=== PATIENT | female | born 1955 | race Caucasian/White ===

== ENCOUNTER 2021-12-23 13:18 | Emergency (ER) | payer BC, MEDICARE ==
[2021-12-23 13:24] VITALS: RESP 18; TEMP 98.2
[2021-12-23] MEDS ORDERED: DIPH,PERTUS(ACELL)TETVAC-LF 0.5 ML VIAL IM ONE (13:56)
--- NOTE | 2021-12-23 13:58 | ED ---
General Adult HPI - General Chief complaint: Extremity Injury, Upper Stated complaint: Object in hand Time Seen by Provider: 12/23/21 13:35 Source: patient, RN notes reviewed, old records reviewed Mode of arrival: ambulatory Limitations: no limitations - History of Present Illness Initial comments: 66-year-old female with foreign body to the right hand. Patient was cleaning a wooden panel, splinter entered the finger, dorsal surface. Patient has had pain was unable to visualize the piece of wood. - Related Data Home Medications Medication Instructions Recorded Confirmed Cholecalciferol [Vitamin D3] 1,000 unit PO DAILY 12/11/13 12/19/13 Citalopram Hydrobromide [CeleXA] 10 mg PO DAILY 12/11/13 12/19/13 Cyanocobalamin [Vitamin B-12] 500 mcg PO DAILY@1200 12/11/13 12/19/13 Levothyroxine Sodium [Synthroid] 112 mcg PO DAILY 12/11/13 12/19/13 Previous Rx's Medication Instructions Recorded Cephalexin [Keflex] 500 mg PO QID 7 Days #28 cap 12/23/21 Allergies Allergy/AdvReac Type Severity Reaction Status Date / Time No Known Allergies Allergy Verified 12/23/21 13:24 Review of Systems ROS Statement: Those systems with pertinent positive or pertinent negative responses have been documented in the HPI. ROS Other: All systems not noted in ROS Statement are negative. Past Medical History Additional Past Medical History / Comment(s): FELL IN AUGUST DUE TO DIZZINESS. STATES DIZZINESS "FOR A WHILE". History of Any Multi-Drug Resistant Organisms: None Reported Additional Past Surgical History / Comment(s): lymph node bx- benign, cyst removal, 1 D&C, rt hand surgery x2. 12/19/13 LUMBAR PUNCTURE TO R/O MULTIPLE SCLEROSIS. Past Psychological History: Anxiety Smoking Status: Current every day smoker Past Alcohol Use History: None Reported Past Drug Use History: None Reported General Exam Limitations: no limitations General appearance: alert, in no apparent distress Head exam: Present: atraumatic, normocephalic Eye exam: Present: normal appearance, PERRL ENT exam: Present: normal exam Neck exam: Present: normal inspection. Absent: tenderness, meningismus Respiratory exam: Present: normal lung sounds bilaterally. Absent: respiratory distress, wheezes Cardiovascular Exam: Present: regular rate, normal rhythm GI/Abdominal exam: Present: soft. Absent: distended, tenderness Extremities exam: Present: other (Pain and swelling over the dorsal surface of the fourth digit right hand at the proximal interphalangeal joint, with small site of entry on the radial side.) Neurological exam: Present: alert, oriented X3, CN II-XII intact. Absent: motor sensory deficit Skin exam: Present: warm, dry Course Vital Signs 12/23/21 13:20 Temperature 98.2 F Pulse Rate 107 H Respiratory 18 Rate Blood Pressure 139/82 O2 Sat by Pulse 96 Oximetry Procedures - Forgein Body Removal Soft Tissue Consent Obtained: verbal consent Site: hand Anesthetic Used: lidocaine 1% Amount (mLs): 4 Foreign Body Suspected: Wood Foreign Body Removed: yes Foreign Body Removal Technique: Instrumentation Patient Tolerated Procedure: well - Nerve Block Consent Obtained: verbal consent Local Anesthetic Used: Lidocaine 1% Amount of anesthesia used: 4 Side: right Nerve Blocks: digital Complications: none Patient Tolerated Procedure: well Medical Decision Making - Medical Decision Making 66-year-old with what foreign-body. I was able to remove the foreign body in the emergency department and did have a trajectory that I believe it went into the joint space of the proximal interphalangeal joint fourth digit right hand. X-ray did not show foreign body. I will start the patient on antibiotics or tetanus is updated. She should follow-up with hand surgery and monitor very closely for infection. Disposition Clinical Impression: Foreign body hand Disposition: HOME SELF-CARE Condition: Good Instructions (If sedation given, give patient instructions): Puncture Wound (ED), Soft Tissue Foreign Body (ED) Prescriptions: Cephalexin [Keflex] 500 mg PO QID 7 Days #28 cap Is patient prescribed a controlled substance at d/c from ED?: No Referrals: Alex Okeefe MD [Primary Care Provider] - 1-2 days Morgan Bazzi DO [Doctor of Osteopathic Medicine] - 1-2 days
--- NOTE | 2021-12-23 14:20 | XR ---
Right hand HISTORY: Foreign body, pain fourth digit 2 views of the right hand Arthropathy changes are present. Bone mineralization and alignment are maintained. Old ulnar styloid fracture is present. There is likely scaphoid waist fracture which is chronic, secondary osteoarthrit ic changes are present. No radiopaque foreign body is evident. Lucencies present within the soft tiss ues at the level of the distal fourth digit medially at the metacarpophalangeal joint IMPRESSION: Correlate for remote trauma to the right wrist. No radiopaque foreign body evident at the fourth digit, correlate for cellulitis.
[2021-12-23 14:45] VITALS: BP 132/74; PULSE 75
== END 2021-12-23 14:45 | disposition home or self-care (01) ==
LOC: EC 13:18
DX: S60.551A Superficial foreign body of right hand, initial encounter (principal); F17.200 Nicotine dependence, unspecified, uncomplicated; Z23 Encounter for immunization; W45.8XXA Other foreign body or object entering through skin, initial encounter
CPT/HCPCS: 90715

== ENCOUNTER 2022-01-20 13:38 | Emergency (ER) | payer BC, MEDICARE ==
[2022-01-20 14:02] VITALS: RESP 18
[2022-01-20] MEDS ORDERED: KETOROLAC 15 MG/ML 1 ML VIAL IVP STA (14:04)
[2022-01-20] MEDS ORDERED: diazePAM 5 MG TAB PO STA (14:04)
[2022-01-20] MEDS ORDERED: ACET/COD 300 MG/30 MG STARTER PACK 6 TAB BTL PO STA (15:12)
--- NOTE | 2022-01-20 15:12 | ED ---
General Adult HPI - General Chief complaint: Extremity Injury, Lower Stated complaint: Hip injury Time Seen by Provider: 01/20/22 13:40 Source: patient, EMS, RN notes reviewed, old records reviewed Mode of arrival: EMS Limitations: no limitations - History of Present Illness Initial comments: This is a 66-year-old female who presents to the emergency department complaining that she slipped on some oral the floor and almost splits and now she has some pain in her left buttock region which radiates down the leg a little. Patient denies any back pain. Patient denies hitting her head or neck. Patient states the pain is all at the top of the hamstring area. Patient denies any other injury at this time. - Related Data Home Medications Medication Instructions Recorded Confirmed Cholecalciferol [Vitamin D3] 1,000 unit PO DAILY 12/11/13 12/19/13 Citalopram Hydrobromide [CeleXA] 10 mg PO DAILY 12/11/13 12/19/13 Cyanocobalamin [Vitamin B-12] 500 mcg PO DAILY@1200 12/11/13 12/19/13 Levothyroxine Sodium [Synthroid] 112 mcg PO DAILY 12/11/13 12/19/13 Previous Rx's Medication Instructions Recorded Cephalexin [Keflex] 500 mg PO QID 7 Days #28 cap 12/23/21 Ketorolac [Toradol] 10 mg PO Q6HR #15 tab 01/20/22 Allergies Allergy/AdvReac Type Severity Reaction Status Date / Time No Known Allergies Allergy Verified 12/23/21 13:24 Review of Systems ROS Statement: Those systems with pertinent positive or pertinent negative responses have been documented in the HPI. ROS Other: All systems not noted in ROS Statement are negative. Past Medical History Additional Past Medical History / Comment(s): FELL IN AUGUST DUE TO DIZZINESS. STATES DIZZINESS "FOR A WHILE". History of Any Multi-Drug Resistant Organisms: None Reported Additional Past Surgical History / Comment(s): lymph node bx- benign, cyst removal, 1 D&C, rt hand surgery x2. 12/19/13 LUMBAR PUNCTURE TO R/O MULTIPLE SCLEROSIS. Past Psychological History: Anxiety Smoking Status: Current every day smoker Past Alcohol Use History: None Reported Past Drug Use History: None Reported General Exam - General Exam Comments Initial Comments: GENERAL Patient is well-developed and well-nourished. Patient is in mild distress. EYES Patient's pupils are equal and round. Extraocular motion is intact SKIN Unremarkable NEURO The patient is alert and oriented 3 PYSCH Patient has normal interpersonal interactions. MUSCULOSKELETAL patient has pain in the posterior aspect of her leg at the upper insertion of the hamstring. Patient has full range of motion of the hip. Patient has full range motion of the knee. Limitations: no limitations Course Vital Signs 01/20/22 13:42 Temperature 99.1 F Pulse Rate 100 Respiratory 18 Rate Blood Pressure 130/84 O2 Sat by Pulse 97 Oximetry Disposition Clinical Impression: Hamstring muscle strain Disposition: HOME SELF-CARE Condition: Good Instructions (If sedation given, give patient instructions): Hamstring Injury (ED) Prescriptions: Ketorolac [Toradol] 10 mg PO Q6HR #15 tab Is patient prescribed a controlled substance at d/c from ED?: No Referrals: Alex Okeefe MD [Primary Care Provider] - 1-2 days Time of Disposition: 15:12
[2022-01-20 15:52] VITALS: BP 116/81; PULSE 94; TEMP 98.8
--- NOTE | 2022-01-20 15:53 | XR ---
EXAMINATION TYPE: XR Hip LT and AP Pelvis DATE OF EXAM: 01/20/2022 COMPARISON: NONE HISTORY: Trauma, pain TECHNIQUE: A single AP view of the pelvis is obtained. Two views of the left hip are obtained. FINDINGS: There is no acute fracture/dislocation evident in the pelvis. The hip and sacroiliac join ts appear symmetric and some mild concentric narrowing present in the left hip with some mild spurrin g consistent with osteoarthritic change. The overlying soft tissue appears unremarkable. Two views of left hip show no acute fracture or dislocation. No focal lytic or sclerotic lesion seen in the proximal left femur. The overlying soft tissue is unremarkable. Punctate metallic densities are likely due to bowel content within the pelvis. Generative disc changes are present of the lower lumbar spine, there is spina bifida occulta at S1. IMPRESSION: There is no acute fracture or dislocation in the pelvis or left hip.
== END 2022-01-20 16:05 | disposition home or self-care (01) ==
LOC: EC 13:38
DX: S76.312A Strain of muscle, fascia and tendon of the posterior muscle group at thigh level, left thigh, initial encounter (principal); F41.9 Anxiety disorder, unspecified; F17.200 Nicotine dependence, unspecified, uncomplicated; W01.0XXA Fall on same level from slipping, tripping and stumbling without subsequent striking against object, initial encounter
CPT/HCPCS: 73502; 99284; 96374; J1885

== ENCOUNTER 2022-10-17 15:52 | Emergency (ER) | payer BC, MEDICARE ==
--- NOTE | 2022-10-17 16:18 | ED ---
Chest Pain HPI - General Stated Complaint: Chest Pain Time Seen by Provider: 10/17/22 16:14 Source: RN notes reviewed, old records reviewed - History of Present Illness Initial Comments: This is a 67-year-old female DF for evaluation of chest pain today. Patient was driving from taking her dog for evaluation after that and begin any chest pain no driving home patient did make the drive home, states she was low but clammy on arrival little anxious. Patient presents to the ER with chest pain and anxiety. Patient is no shortness of breath. Patient has had this pain in the past but no significant other symptoms symptoms again no shortness of breath or sweating. Patient is no history of high blood pressure cholesterol diabetes nonsmoker with no significant history of heart disease. MD Complaint: chest pain -: hour(s) Onset: during rest, during exertion Pain Location: substernal Pain Radiation: none Severity: mild Severity scale (1-10): 3 Quality: tightness, aching Consistency: intermittent, now resolved Anginal Symptoms: sense of impending doom Treatments Prior to Arrival: none - Related Data Home Medications Medication Instructions Recorded Confirmed Levothyroxine Sodium [Synthroid] 112 mcg PO DAILY 12/11/13 10/17/22 Cholecalciferol [Vitamin D3 (25 25 mcg PO DAILY 10/17/22 10/17/22 Mcg = 1000 Iu)] Citalopram Hydrobromide [CeleXA] 20 mg PO DAILY 10/17/22 10/17/22 Fluticasone/Umeclidin/Vilanter 1 puff INHALATION RT-DAILY 10/17/22 10/17/22 [Trelekalpana Ellipta 100-62.5-25] Allergies Allergy/AdvReac Type Severity Reaction Status Date / Time No Known Allergies Allergy Verified 10/17/22 17:05 Review of Systems ROS Statement: Those systems with pertinent positive or pertinent negative responses have been documented in the HPI. ROS Other: All systems not noted in ROS Statement are negative. EKG Findings - EKG Comments: EKG Findings:: EKG shows sinus 74 TX 162 QRS 14 QTC 400 Past Medical History Additional Past Medical History / Comment(s): FELL IN AUGUST DUE TO DIZZINESS. STATES DIZZINESS "FOR A WHILE". History of Any Multi-Drug Resistant Organisms: None Reported Additional Past Surgical History / Comment(s): lymph node bx- benign, cyst removal, 1 D&C, rt hand surgery x2. 12/19/13 LUMBAR PUNCTURE TO R/O MULTIPLE SCLEROSIS. Past Psychological History: Anxiety Smoking Status: Current every day smoker Past Alcohol Use History: None Reported Past Drug Use History: None Reported General Exam General appearance: alert, in no apparent distress Head exam: Present: atraumatic, normocephalic, normal inspection Eye exam: Present: normal appearance, PERRL, EOMI. Absent: scleral icterus, conjunctival injection, periorbital swelling ENT exam: Present: normal exam, mucous membranes moist Neck exam: Present: normal inspection. Absent: tenderness, meningismus, lymphadenopathy Respiratory exam: Present: normal lung sounds bilaterally. Absent: respiratory distress, wheezes, rales, rhonchi, stridor Cardiovascular Exam: Present: regular rate, normal rhythm, normal heart sounds. Absent: systolic murmur, diastolic murmur, rubs, gallop, clicks GI/Abdominal exam: Present: soft, normal bowel sounds. Absent: distended, tenderness, guarding, rebound, rigid Extremities exam: Present: normal inspection, full ROM, normal capillary refill. Absent: tenderness, pedal edema, joint swelling, calf tenderness Back exam: Present: normal inspection Neurological exam: Present: alert, oriented X3, CN II-XII intact Psychiatric exam: Present: normal affect, normal mood Skin exam: Present: warm, dry, intact, normal color. Absent: rash Course Vital Signs 10/17/22 10/17/22 10/17/22 16:15 16:32 16:52 Temperature Pulse Rate 92 90 Respiratory 16 16 Rate Blood Pressure 151/99 125/84 O2 Sat by Pulse 97 97 Oximetry 10/17/22 18:42 Temperature 97.8 F Pulse Rate 98 Respiratory 18 Rate Blood Pressure 108/78 O2 Sat by Pulse 97 Oximetry - Reevaluation(s) Reevaluation #1: 10/17/22 22:07 Medical record is reviewed Reevaluation #2: 10/17/22 22:07 Chest pain is intermittent and improving Reevaluation #3: 10/17/22 22:07 Patient informed results and questions answered Reevaluation #4: 10/17/22 Was pt. sent in by a medical professional or institution? @ -no Did you speak to anyone other than the patient for history? @ -no Did you review nursing and triage notes? @ -agree Were old charts reviewed? @ -yes Differential Diagnosis? @ -no EKG interpreted by me (3pts min.)? @ -no X-rays interpreted by me (1pt min.)? @ -no CT interpreted by me (1pt min.)? @ -no U/S interpreted by me (1pt. min.)? @ -no What testing was considered but not performed? (CT, X-rays, U/S, labs)? Why? @ -no What meds were considered but not given? Why? @ -no Did you discuss the management of the patient with other professionals? @ -no Did you reconcile home meds? @ -no Was smoking cessation discussed for >3mins.? @ -no Was critical care preformed (if so, how long)? @ -no Were there social determinants of health that impacted care today? How? (Homelessness, low income, unemployed, alcoholism, drug addiction, transportation, low edu. Level, literacy, decrease access to med. care, nursing home, rehab)? @ -no Was there de-escalation of care discussed even if they declined? (Discuss DNR or withdrawal of care, Hospice)? @ -no What co-morbidities impacted this encounter? (DM, HTN, Smoking, COPD, CAD, Cancer, CVA, Hep., AIDS, mental health diagnosis, sleep apnea, morbid obesity)? @ -no Was patient admitted / discharged? @ -dc Undiagnosed new problem with uncertain prognosis? @ -no Drug Therapy requiring intensive monitoring for toxicity (Heparin, Nitro, Insu yris, Cardizem)? @ -no Were any procedures done? @ -no Diagnosis/symptom? @ -no Acute, or Chronic, or Acute on Chronic? @ -no Uncomplicated (without systemic symptoms) or Complicated (systemic symptoms)? @ -no Side effects of treatment? @ -no Exacerbation, Progression, or Severe Exacerbation] @ -no Poses a threat to life or bodily function? @ -no Reevaluation #5: 10/17/22 22:07 Differential Chest Pain: Stable Angina, Unstable Angina, STEMI, NSTEMI Aortic Dissection, Pneumothorax, Musculoskeletal, Esophageal Spasm GERD, Cholecystitis, Pancreatitis, Zoster, this is not meant to be an all-inclusive list. Chest Pain MDM - MDM 67 female to ER for evaluation of chest pain prior to arrival about 2 hours prior to arrival left-sided chest resolved upon arrival are improving patient did take aspirin per EMS which she states helped her pain significantly patient states she feels well has no significant heart disease history patient would prefer discharged at this time and an outpatient follow-up Disposition Clinical Impression: Chest pain, Atypical chest pain Disposition: HOME SELF-CARE Condition: Good Instructions (If sedation given, give patient instructions): Chest Pain (ED) Is patient prescribed a controlled substance at d/c from ED?: No Referrals: Alex Okeefe MD [Primary Care Provider] - 1-2 days Time of Disposition: 18:30
[2022-10-17 16:50] LABS: Basophils % (A) 0 %; Eosinophils # (A) 0.2 k/uL (0-0.7); Eosinophils % (A) 2 %; HCT 46.9 % (34.0-46.0); HGB 15.7 gm/dL (11.4-16.0); Lymphocytes # (A) 1.8 k/uL (1.0-4.8); Lymphocytes % (A) 20 %; MCH 31.8 pg (25.0-35.0); MCHC 33.4 g/dL (31.0-37.0); Monocytes # (A) 0.7 k/uL (0-1.0); Monocytes % (A) 7 %; Neutrophils # (A) 6.6 k/uL (1.3-7.7); Neutrophils % (A) 70 %; Platelet Count 278 k/uL (150-450); RBC 4.94 m/uL (3.80-5.40); RDW 12.7 % (11.5-15.5); WBC 9.4 k/uL (3.8-10.6)
[2022-10-17 17:04] LABS: Partial Thromboplastin Time 26.1 sec (22.0-30.0); Prothrombin Time 10.2 sec (9.0-12.0)
--- NOTE | 2022-10-17 17:05 | XR ---
EXAMINATION TYPE: XR chest 2V DATE OF EXAM: 10/17/2022 4:43 PM COMPARISON: Chest radiographs from 09/29/2011 TECHNIQUE: XR chest 2V Frontal and lateral views of the chest. CLINICAL INDICATION:Female, 67 years old with history of Chest Pain; FINDINGS: Lungs/Pleura: There is no evidence of pleural effusion, focal consolidation, or pneumothorax. Pulmonary vascularity: Unremarkable. Heart/mediastinum: Cardiomediastinal silhouette is unremarkable. Musculoskeletal: No acute osseous pathology. IMPRESSION: No acute cardiopulmonary disease/process.
[2022-10-17 17:12] LABS: Albumin 4.1 g/dL (3.5-5.0); Calcium 9.7 mg/dL (8.4-10.2); Magnesium 1.9 mg/dL (1.6-2.3); Potassium 4.7 mmol/L (3.5-5.1); Total Bilirubin 0.5 mg/dL (0.2-1.3); Total Protein 6.8 g/dL (6.3-8.2)
[2022-10-17 18:45] VITALS: BP 108/78; PULSE 98; RESP 18; TEMP 97.8
== END 2022-10-17 18:43 | disposition home or self-care (01) ==
LOC: EC 15:52
DX: R07.89 Other chest pain (principal); F41.9 Anxiety disorder, unspecified; F17.200 Nicotine dependence, unspecified, uncomplicated
CPT/HCPCS: 36415; 71046; 80053; 83690; 83735; 83880; 84484; 85025; 85610; 85730; 93005; 99285

== ENCOUNTER → 2022-10-31 | Outpatient (CLI) | payer BC, MEDICARE ==
--- NOTE | 2022-11-01 09:38 | CA ---
Stress Echo Report Blossom Rendon Age: 67 Gender: F : 1955 Exam Date: 10/31/2022 09:55 Exam Location: [place] Stress Ht (in): 60 Wt (lb): 200 Ordering Physician: Alex Okeefe MD Referring Physician: Maldonado RAE Barber Instructor: ALYSON Technologist Procedure CPT: Indication: I10 ESSENTIAL (PRIMARY) HYPERTENSION ICD-9 Codes: Rhythm: Patient History: Cardiac Medications: Medications in past 24 hours: Contrast: Stress Results Protocol: Star Total dose(mL): Exercise Duration (min:sec): 2:[address] Depression (mm): Angina Score: Perez Score: METS: 4.0 Resting HR: 85 Resting BP: 137 / 76 Peak HR: 138 Peak BP: 161 / 61 Max Predicted HR: 154 90 % Max Predicted HR Target HR: 131 Double Product: [id number] Stress Summary: BP Response: Reason for Termination: Reached target heart rate or work-load Cardiac Symptoms: SHORT OF BREATH ECG Analysis Resting ECG: Stress ECG: Arrhythmia: Echo Analysis Resting Echo: Peak Echo Analysis: MEASUREMENTS (Male/Female) Normal Values CONCLUSIONS Average exercise tolerance Normal EKG and echo in response to exercise Dr. Osvaldo Alejandre MD (Electronically Signed) Final Date: 01 November 2022 09:37
--- NOTE | 2022-11-01 09:39 | CA ---
Transthoracic Echo Report Name: Blossom Rendon Age: 67 Gender: F : 1955 Exam Date: 10/31/2022 10:29 Exam Location: [facility] Echo Ht (in): 60 Wt (lb): 210 Ordering Physician: Alex Okeefe MD Attending/Referring Phys: [id number], Maldonado Transportation Planning Engineer Noni Chandra, MALLY Procedure CPT: Indications: I10 ESSENTIAL (PRIMARY) HYPERTENSION Cardiac Hx: Technical Quality: Fair Contrast 1: Total Dose (mL): Contrast 2: Total Dose (mL): MEASUREMENTS (Male / Female) Normal Values 2D ECHO LV Diastolic Diameter PLAX 3.3 cm 4.2 - 5.9 / 3.9 - 5.3 cm LV Systolic Diameter PLAX 1.9 cm IVS Diastolic Thickness 1.5 cm 0.6 - 1.0 / 0.6 - 0.9 cm LVPW Diastolic Thickness 1.3 cm 0.6 - 1.0 / 0.6 - 0.9 cm LV Relative Wall Thickness 0.8 RV Internal Dim ED PLAX 2.6 cm LA Volume 34.8 cm??? 18 - 58 / 22 - 52 cm??? M-MODE Aortic Root Diameter MM 2.6 cm LA Systolic Diameter MM 3.7 cm LA Ao Ratio MM 1.4 AV Cusp Separation MM 2.0 cm DOPPLER AV Peak Velocity 147.8 cm/s AV Peak Gradient 8.7 mmHg AV Mean Velocity 94.4 cm/s AV Mean Gradient 4.1 mmHg AV Velocity Time Integral 24.4 cm LVOT Peak Velocity 122.6 cm/s LVOT Peak Gradient 6.0 mmHg LVOT Velocity Time Integral 27.5 cm MV Area PHT 3.0 cm??? Mitral E Point Velocity 71.8 cm/s Mitral A Point Velocity 117.7 cm/s Mitral E to A Ratio 0.6 MV Deceleration Time 255.9 ms MV E' Velocity 7.9 cm/s Mitral E to MV E' Ratio 9.0 FINDINGS Left Ventricle Moderately increased left ventricular wall thickness. Normal left ventricular systolic function with no obvious regional wall motion abnormalities. Left ventricular cavity size normal. Left ventricular ejection fraction is estimated at 55-60 %. Right Ventricle Normal right ventricular size and function. Right ventricular systolic pressure within normal limits. Right Atrium Normal right atrial size. Left Atrium Normal left atrial size. Mitral Valve Structurally normal mitral valve. No mitral stenosis, regurgitation or prolapse. Aortic Valve Trileaflet aortic valve. No aortic valve stenosis or regurgitation. Tricuspid Valve Structurally normal tricuspid valve. Mild tricuspid regurgitation. Pulmonic Valve Structurally normal pulmonic valve. Pericardium No pericardial effusion. Aorta Normal size aortic root and proximal ascending aorta. CONCLUSIONS Normal biventricular dimension and systolic function Normal pulmonary artery systolic pressure Normal intracardiac valves Previewed by: Dr. Osvaldo Alejandre MD (Electronically Signed) Final Date: 01 November 2022 09:38
== END | disposition home or self-care (01) ==
LOC: RADECHMAIN 09:43
PROVIDERS: ATTEND Family Medicine
DX: I10 Essential (primary) hypertension (principal); R07.9 Chest pain, unspecified
CPT/HCPCS: 93306; 93351

== ENCOUNTER → 2022-10-31 | Outpatient (CLI) | payer BC, MEDICARE | END | disposition home or self-care (01) | LOC: RADNMMAIN 10:01 | PROVIDERS: ATTEND Family Medicine | DX: Z53.9 Procedure and treatment not carried out, unspecified reason (principal) ==

== ENCOUNTER → 2022-12-22 | Outpatient (CLI) | payer MEDICARE ==
--- NOTE | 2022-12-25 09:29 | MM ---
Reason for Exam: Screening (asymptomatic). Last mammogram was performed 9 year(s) and 7 month(s) ago. Patient History: Menarche at age 15. First Full-Term at age 23. Postmenopausal. Risk Values: Sarahy 5 year model risk: 1.4%. NCI Lifetime model risk: 4.9%. Prior Study Comparison: 10/12/2000 Bilateral Screening Mammogram, [facility]. 04/07/2002 Bilateral Screening Mammogram, [facility]. 05/28/2013 Bilateral Screening Mammogram, [facility]. Tissue Density: The breast tissue is heterogeneously dense. This may lower the sensitivity of mammography. Findings: Analyzed By CAD. There is no suspicious group of microcalcifications or new suspicious mass in either breast. Stable benign calcifications as well as right breast nodule noted. Overall Assessment: Benign, BI-RAD 2 Management: Screening Mammogram of both breasts in 1 year. . Patient should continue monthly self-breast exams. A clinical breast exam by your physician is recommended on an annual basis. This exam should not preclude additional follow-up of suspicious palpable abnormalities. Note on Sarahy scores and lifetime risk: 1. A Sarahy score greater than 3% is considered moderate risk. If this is the case, consider specialist referral to assess eligibility for a risk reducing agent. 2. If overall lifetime risk for the development of breast cancer is 20% or higher, the patient may qualify for future screening with alternating mammogram and breast MRI. Electronically signed and approved by: Gilberto Cline M.D. Radiologis
== END | disposition home or self-care (01) ==
LOC: RADMAMWWP 14:38
PROVIDERS: ATTEND Family Medicine
DX: Z12.31 Encounter for screening mammogram for malignant neoplasm of breast (principal); Z78.0 Asymptomatic menopausal state
CPT/HCPCS: 77063; 77067

== ENCOUNTER → 2024-06-18 | Outpatient (CLI) | payer MEDICARE ==
--- NOTE | 2024-06-21 00:09 | BD ---
EXAMINATION TYPE: Axial Bone Density DATE OF EXAM: 06/18/2024 CLINICAL HISTORY: 68 years old Female. ICD-10 CODE: Z12.31 BR CANCER SCREEN M78.0 MENOPAUSAL , Addit ional History: Height: 60" Weight: 204lbs FRAX RISK QUESTIONS: Alcohol (3 or more units per day): No Family History (Parent hip fracture): No Glucocorticoids (More than 3mos): No (Ex: prednisone, prednisolone, methylprednisolone, dexamethasone, and hydrocortisone). History of Fracture in Adulthood: Yes Secondary Osteoporosis: 1. Type 1 Diabetes: No 2. Hyperthyroidism: No 3. Menopause before 45: No 4. Malnutrition: No 5. Chronic liver disease: No Rheumatoid Arthritis: No Current Tobacco Use: Yes RISK FACTORS HISTORY OF: Hip Fracture (Right/Left): No Spine Fracture: No History of Wrist Fracture: No Surgery to Spine/Hip(right/left)/Wrist (right/left): Right wrist surgery MEDICATIONS: Thyroid Medications: Yes Which medication: Levothyroxine How Long: About 30 years Osteoporosis Medications: No EXAM MEASUREMENTS: Bone mineral densitometry was performed using the [employer] System. Bone mineral density as measured about the Lumbar spine is: ----- L1-L4(G/cm2): 1.019 T Score Values are as follows: ----- L1: -2.6 ----- L2: -1.2 ----- L3: -1.4 ----- L4: -0.5 ----- L1-L4: -1.3 Z Score Values are as follows: ----- L1: -1.9 ----- L2: -0.5 ----- L3: -0.7 ----- L4: 0.2 ----- L1-L4: -0.6 Baseline @MPH Bone mineral density about the R hip (g/cm2): 1.064 Bone mineral density about the L hip (g/cm2): 1.011 T Score values are as follows: -----R Neck: -0.7 -----L Neck: -1.1 -----R Total: 0.4 -----L Total: 0.0 Z Score values are as follows: -----R Neck: 0.2 -----L Neck: -0.1 -----R Total: 1.1 -----L Total: 0.7 Baseline @MPH FRAX%s: The graph provided illustrates a 12.6% chance for a major osteoporotic fx and a 1.8% chance f or the hips probability for fx in 10 years time. IMPRESSION: Osteopenia (T Score between -2.5 and -1). There is slightly increased risk of fracture and the patient may be considered for treatment. Re-Screen 2-5 years. NOTE: T-SCORE=SD OF THE YOUNG ADULT MEAN. [facility], , 06/21/2024 12:06 AM
--- NOTE | 2024-06-22 03:51 | MM ---
Reason for Exam: Screening (asymptomatic). Last mammogram was performed 1 year(s) and 6 month(s) ago. Patient History: Menarche at age 15. First Full-Term at age 23. Postmenopausal. Risk Values: Sarahy 5 year model risk: 1.4%. NCI Lifetime model risk: 4.8%. Prior Study Comparison: 04/07/2002 Bilateral Screening Mammogram, [facility]. 05/28/2013 Bilateral Screening Mammogram, [facility]. 12/22/2022 Bilateral MG 3D screening mammo w/cad, [facility]. Tissue Density: There are scattered areas of fibroglandular density. Findings: Analyzed By CAD. The pattern is symmetrical. Pattern appears stable. No suspicious groups of microcalcifications, spiculated or lobular masses, architectural distortion or other secondary signs of malignancy are mammographically apparent. Overall Assessment: Benign, BI-RAD 2 Management: Screening Mammogram of both breasts in 1 year. A negative mammogram report should not preclude additional follow up of suspicious palpable abnormalities. Patient should continue monthly self breast exam. A clinical breast exam by your physician is recommended on an annual basis and results should be correlated with mammographic findings. Note on Sarahy scores and lifetime risk: 1. A Sarahy score greater than 3% is considered moderate risk. If this is the case, consider specialist referral to assess eligibility for a risk reducing agent. 2. If overall lifetime risk for the development of breast cancer is 20% or higher, the patient may qualify for future screening with alternating mammogram and breast MRI. [facility], , 06/22/2024 3:48 AM. Electronically signed and approved by: Raj Valladares D.O. Radiologis
== END | disposition home or self-care (01) ==
LOC: RADMAMWWP 14:42
PROVIDERS: ATTEND Family Medicine
DX: Z12.31 Encounter for screening mammogram for malignant neoplasm of breast (principal); Z78.0 Asymptomatic menopausal state; R92.323 Mammographic fibroglandular density, bilateral breasts; M85.89 Other specified disorders of bone density and structure, multiple sites
CPT/HCPCS: 77063; 77067; 77080